=== PATIENT | male | born 1980 | race Hispanic/Latino ===

== ENCOUNTER 2018-01-24 06:06 | Day surgery (SDC) | payer MEDICAID ==
[~2018-01-24] VITALS: Ht 160 cm; Wt 81.7 kg
[~2018-01-24 06:06] MED LIST: FLUO20CA30 PO; RANI150C4 PO; SODIUM CHLORIDE 0.9% 1000ML 1,000 ML IV ONE
[2018-01-24 06:27] VITALS: BP 129/84
[2018-01-24] MEDS ORDERED: PROPOFOL 10 MG/ML 20ML VIAL IV ONE ×2 (08:28→08:29)
[2018-01-24 08:44] VITALS: BP 90/47
== END 2018-01-24 09:14 | disposition home or self-care (01) ==
LOC: DAH 06:06 → ENDO 06:06
PROVIDERS: ATTEND Internal Medicine Gastroenterology
DX: D12.3 Benign neoplasm of transverse colon (principal); D12.4 Benign neoplasm of descending colon; F32.9 Major depressive disorder, single episode, unspecified; E78.5 Hyperlipidemia, unspecified; K21.9 Gastro-esophageal reflux disease without esophagitis; K59.01 Slow transit constipation; Z79.899 Other long term (current) drug therapy
CPT/HCPCS: 45380; 45385; 88305 ×2; A4606; J2704 ×2; J7030